=== PATIENT | male | born 1995 | race Caucasian/White ===

== ENCOUNTER 2016-12-22 02:22 | Observation (INO) | payer MEDICAID, OTHER ==
[2016-12-22 02:23] VITALS: BMI 24.9
[2016-12-22 02:36] VITALS: BP 158/99; PULSE 72; RESP 16; TEMP 97.5; O2SAT 98
--- NOTE | 2016-12-22 03:25 | ED PDOC ---
Arrival/HPI - General Chief Complaint: Alcohol Ingestion Time Seen by Provider: 12/22/16 02:33 Historian: Patient - History of Present Illness Narrative History of Present Illness (Text): 12/22/16 03:20 Chana Colon is a 21 year old male who presents to the emergency department via EMS for alcohol intoxication. Patient admits to drinking alcohol. Denies any suicidal or homicidal ideation. Denies any somatic complaints. Time/Duration: 4-6 hours Symptom Onset: Gradual Symptom Course: Unchanged Severity Level: Mild Activities at Onset: Light Past Medical History - Provider Review Nursing Documentation Reviewed: Yes - Infectious Disease Hx of Infectious Diseases: None - Cardiac Hx Cardiac Disorders: Yes - Pulmonary Hx Respiratory Disorders: No - Endocrine/Metabolic Hx Endocrine Disorders: No - Hematological/Oncological Hx Blood Disorders: No - Musculoskeletal/Rheumatological Hx Falls: No - Gastrointestinal Hx Gastrointestinal Disorders: No - Psychiatric Hx Substance Use: No - Anesthesia Hx Anesthesia: No Family/Social History - Physician Review Nursing Documentation Reviewed: Yes Family/Social History: No Known Family HX Smoking Status: Never Smoked Hx Alcohol Use: Yes (social) Hx Substance Use: No Allergies/Home Meds Allergies/Adverse Reactions: Allergies amoxicillin Allergy (Verified 06/07/16 18:07) RASH morphine Allergy (Verified 06/07/16 15:14) URTICARIA Review of Systems - Physician Review All systems were reviewed & negative as marked: Yes - Review of Systems Systems not reviewed;Unavailable: Intoxicated Physical Exam Vital Signs Reviewed: Yes Vital Signs Temp Pulse Resp BP Pulse Ox 12/22/16 02:35 97.5 F L 72 16 158/99 H 98 Temperature: Afebrile Blood Pressure: Hypertensive Pulse: Regular Respiratory Rate: Normal Appearance: Positive for: Comfortable Pain Distress: None Mental Status: Positive for: Alert and Oriented X 3 - Systems Exam Head: Present: Atraumatic, Normocephalic Pupils: Present: PERRL Conjunctiva: Present: Normal Respiratory/Chest: Present: Clear to Auscultation, Good Air Exchange. No: Respiratory Distress, Accessory Muscle Use Cardiovascular: Present: Regular Rate and Rhythm, Normal S1, S2. No: Murmurs Abdomen: Present: Normal Bowel Sounds. No: Tenderness, Distention, Peritoneal Signs Upper Extremity: Present: Normal Inspection. No: Cyanosis, Edema Lower Extremity: Present: Normal Inspection. No: Edema Neurological: Present: GCS=15, CN II-XII Intact, Speech Normal Skin: Present: Warm, Dry, Normal Color. No: Rashes Psychiatric: Present: Alert, Oriented x 3, Intoxicated Medical Decision Making ED Course and Treatment: 12/22/16 03:27 Impression: A 21 year old male who presents to the emergency department for alcohol intoxication. Admits to drinking ETOH. Progress Notes: 12/22/16 02:[address] patient on EDObs for alcohol intoxication, awaiting sobriety. - Medication Orders Current Medication Orders: Discontinued Medications Ondansetron HCl (Zofran Odt) 8 mg PO STAT STA Stop: 12/22/16 06:59 ED OBSERVATION Discharge: Yes Date of observation admission: 12/22/16 Time of observation admission: 02:30 - Observation admission statement Patient is being placed in observation because:: Alcohol Intoxication - Goals of Observation Goals of observation are:: Awaiting Sobriety - Progress Note Progress Note: 12/22/16 04:30 Patient resting comfortably without any new complaints. Stable vitals. - Scribe Statement The provider has reviewed the documentation as recorded by the Gonzalez Banks Provider Attestation: All medical record entries made by the Shamiribdylon were at my direction and personally dictated by me. I have reviewed the chart and agree that the record accurately reflects my personal performance of the history, physical exam, medical decision making, and the department course for this patient. I have also personally directed, reviewed, and agree with the discharge instructions and disposition. Disposition/Present on Arrival - Present on Arrival Any Indicators Present on Arrival: No History of DVT/PE: No History of Uncontrolled Diabetes: No Urinary Catheter: No History of Decub. Ulcer: No History Surgical Site Infection Following: None - Disposition Have Diagnosis and Disposition been Completed?: Yes Diagnosis: Alcohol abuse Disposition: ELOPEMENT - ER ONLY Disposition Time: 02:30 Condition: GOOD
== END 2016-12-22 07:13 | disposition home or self-care (01) ==
LOC: ED 02:22 → EROBSV 02:30
PROVIDERS: ADMIT Emergency Medicine; ATTEND Emergency Medicine
DX: F10.10 Alcohol abuse, uncomplicated (principal)
CPT/HCPCS: 99282; G0378

== ENCOUNTER 2018-11-13 09:06 | Emergency (ER) | payer MEDICAID, OTHER ==
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
[2018-11-13 09:19] VITALS: BMI 23.6
[2018-11-13 09:20] VITALS: RESP 20; O2SAT 98
[2018-11-13] MEDS ORDERED: TDAP Vaccine 0.5 mL Syr IM ONE (09:36)
[2018-11-13] MEDS ORDERED: Sodium Chloride 0.9% 1,000 ML IV STA (09:50)
[2018-11-13 11:54] LABS: URINE BILIRUBIN NEGATIVE (NEGATIVE); URINE BLOOD TRACE-INTACT (NEGATIVE); URINE COLOR YELLOW (YELLOW); URINE GLUCOSE (UA) NEGATIVE (NEGATIVE); URINE LEUKOCYTE ESTERASE NEGATIVE Leu/uL (NEGATIVE); URINE PROTEIN 30 mg/dL (<30 mg/dL); URINE UROBILINOGEN 0.2 E.U./dL (<1 E.U./dL)
[2018-11-13 11:55] LABS: BASO # 0.01 K/mm3 (0.0-2.0); BASO % 0.1 % (0.0-3.0); EOS % 0.2 % (1.5-5.0); HEMOGLOBIN 15.4 g/dL (14.0-18.0); LYMPH # 1.2 (1.2-3.4); LYMPH % 13.3 % (22.0-35.0); MEAN CELL VOLUME 88.7 fl (80.0-105.0); MEAN CORPUSCULAR HEMOGLOBIN 31.6 pg (25.0-35.0); MEAN CORPUSCULAR HGB CONC 35.6 g/dl (31.0-37.0); MONO # 0.7 (0.1-0.6); MONO % 8.2 % (1.0-6.0); RBC 4.88 10^6/uL (3.5-6.1); URINE APPEARANCE CLEAR (CLEAR); WHITE BLOOD COUNT 8.9 10^3/uL (4.5-11.0)
[2018-11-13 12:08] LABS: URINE BACTERIA FEW /hpf; URINE WBC 0 - 2 /hpf (0-6)
[2018-11-13 12:09] LABS: ALB/GLOB RATIO 1.6 (1.1-1.8); ALBUMIN 4.8 g/dL (3.0-4.8); ALT/SGPT 14 U/L (7-56); AST/SGOT 26 U/L (17-59); BLOOD UREA NITROGEN 12 mg/dL (7-21); CALCIUM 9.4 mg/dL (8.4-10.5); GFR NON-AFRICAN AMERICAN > 60
[2018-11-13 12:12] LABS: ACETAMINOPHEN < 10.0 ug/ml (10.0-20.0); SALICYLATE < 1 mg/dL (2.0-20.0)
[2018-11-13 12:22] LABS: BARBITURATES, UR NEGATIVE (NEGATIVE); BENZODIAZEPINES, UR NEGATIVE (NEGATIVE); OPIATES, UR NEGATIVE (NEGATIVE); PHENCYCLIDINE, UR NEGATIVE (NEGATIVE)
[2018-11-13] MEDS ORDERED: Bacitracin 500 Units/gm Oint Foilpak UD TOP ONE (13:34)
[2018-11-13 13:43] VITALS: BP 154/81; PULSE 106; TEMP 99.8
--- NOTE | 2018-11-13 20:41 | CARD ---
APPROVED REPORT Date of service: 11/13/2018 EKG Measurement Heart [id number] CT [id number] [id number] <Conclusion> Sinus tachycardia Biatrial enlargement NDSTT abnormalities Abnormal ECG
== END 2018-11-13 14:20 ==
LOC: ED 09:06
DX: S60.511A Abrasion of right hand, initial encounter (principal); Y04.0XXA Assault by unarmed brawl or fight, initial encounter; F12.10 Cannabis abuse, uncomplicated; Z23 Encounter for immunization
CPT/HCPCS: 80053; 81001; 85025; 90471; 90715; 90791; 93005; 99283; G0480; J7030